=== PATIENT | male | born 1995 | race Caucasian/White ===

== ENCOUNTER 2021-01-05 18:59 | Emergency (ER) | payer BC, SELFPAY ==
--- NOTE | ~2021-01-05 | XR_ITS ---
EXAMINATION: XR ribs RT 2V EXAM DATE: 01/05/2021 19:39 INDICATION: No known recent injury provided at this time. Pain of the right lower anterior ribs. TECHNIQUE: Frontal projection of the upper right ribs, frontal projection of the lower right ribs, ob lique projection of the right ribs, without chest x-ray(s) for interpretation. There is no prior ruth dy for comparison. FINDINGS: There are no displaced acute right rib fractures identified. There are no osteoblastic or osteolytic lesions identified. There is no soft tissue abnormality seen. Right lung is clear. Heart normal in size. IMPRESSION: Unremarkable right rib exam. Reviewed, dictated and finalized at location A.
--- NOTE | ~2021-01-05 | CT_ITS ---
EXAMINATION: CT abdomen pelvis wo con EXAM DATE: 01/05/2021 21:46 INDICATION: Right flank pain. Right lower rib pain. TECHNIQUE: Spiral CT of the abdomen and pelvis was performed without contrast. Axial, coronal and sag ittal images were reviewed. The dose-length product (DLP) for this examination was 211.08 mGy-cm. T he exposure was tailored according to patient size (auto mA exposure control), and iterative reconstr uction (ASIR) was used as additional dose reduction technique. There is no prior study for compariso n. FINDINGS: There is no nephrolithiasis or hydronephrosis. The prostate is unremarkable. The bladder is undistended at time of imaging. The liver, spleen, adrenal glands and pancreas are unremarkable. Gallbladder is unremarkable. No biliary obstruction. There is no retroperitoneal or pelvic lympha denopathy. The appendix is normal. The stomach and small bowel are unremarkable. There is moderate amount of c olonic stool and gas. No free intraperitoneal gas. The heart is normal in size. There are no per icardial or pleural effusions. The lung bases are unremarkable. There are no osteoblastic or osteol ytic lesions identified. Lower aspects of the ribs are unremarkable. IMPRESSION: 1. No nephrolithiasis, hydronephrosis or acute intra-abdominal findings. 2. Moderate amount of colonic stool and gas. Reviewed, dictated and finalized at location A.
[2021-01-05 19:22] VITALS: BP 164/68; PULSE 89; RESP 20; TEMP 37.1; O2SAT 97
[2021-01-05 19:37] LABS: Basophils Absolute Auto 0.1 K/mm3 (0.0-0.1); Basophils Percent Auto 0.6 % (0.2-1.2); Eosinophils Absolute Auto 0.1 K/mm3 (0-0.3); Eosinophils Percent Auto 1.3 % (0-4.4); Hemoglobin 14.1 g/dL (14.0-18.0); Immature Granulocyte Absolute 0.04 K/mm3 (0.00-0.031); Immature Granulocyte Percent A 0.5 % (0-0.5); Lymphocytes Absolute Auto 2.47 K/mm3 (0.9-3.2); Lymphocytes Percent Auto 29.5 % (18.3-44.2); Mean Corpuscular HGB Conc 33.6 g/dl (32-36); Mean Corpuscular Hemoglobin 33.5 pg (26-34); Mean Corpuscular Volume 99.8 fl (80-100); Mean Platelet Volume 8.8 fl (7.4-10.4); Monocytes Absolute Auto 0.8 K/mm3 (0.1-0.6); Monocytes Percent Auto 9.4 % (2.6-8.5); Neutrophils Absolute Auto 4.9 K/mm3 (1.3-6.7); Neutrophils Percent Auto 58.7 % (45.5-73.1); Platelet Count Result 239 k/mm3 (150-375); Red Blood Count 4.21 M/mm3 (4.6-6.20); Red Cell Distribution Width 13.2 % (11.5-14.5); White Blood Count 8.4 K/mm3 (4.5-10.0)
[2021-01-05 19:43] LABS: Add Urine Microscopic? YES; Appearance Urine Clear (Clear); Bacteria Urine Trace /hpf; Bilirubin Urine Negative (Negative); Blood Urine Negative (Negative); Color Urine Yellow (Yellow); Glucose Urine UA Negative (Negative); Ketones Urine Negative (Negative); Leukocyte Esterase Ur Negative LEU/UL (Negative); Mucus Urine Rare /lpf; Nitrate Urine Negative (Negative); Protein Urine 1+ mg/dL (Negative); RBC Urine 0-2 /hpf (0-2); Specific Grav Ur 1.028 (1.001-1.035); WBC Urine 0-3 /hpf
[2021-01-05 19:50] LABS: Alanine Aminotransferase 21 U/L (4-50); Alkaline Phosphatase 88 U/L (38-126); Anion Gap 7 mmol/L (8-16); Aspartate Amino Transferase 32 U/L (17-59); Bilirubin,Total 0.3 mg/dL (0.2-1.3); Blood Urea Nitrogen 9 mg/dL (9-20); Calcium 8.5 mg/dL (8.4-10.2); Carbon Dioxide 28 mmol/L (22-30); Chloride 105 mmol/L (98-107); Estimated CRCL calculation 90 ml/min; Estimated Glomerular Filt Rate > 60; Glucose 124 mg/dL (75-110); Lipase 42 U/L (23-300); Potassium 3.4 mmol/L (3.4-5.0); Sodium 140 mmol/L (137-145)
--- NOTE | 2021-01-05 22:48 | ED.GENADULT ---
HPI - General Adult General Chief complaint: Abdominal Pain Stated complaint: rib pain Time Seen by Provider: 01/05/21 21:18 History of Present Illness HPI narrative: Patient is a 25-year-old gentleman who presents emerged department with chief complaint of right flank pain. The patient states that the pain is in his right flank radiates to his right side of his abdomen. The patient states that sharp states it comes and goes last for a few seconds and then comes back. Related Data Allergies Allergy/AdvReac Type Severity Reaction Status Date / Time No Known Allergies Allergy Unverified 05/08/15 11:15 Review of Systems Review of Systems: Narrative: A 10 system review of systems was completed on the patient and is negative except for what is stated in the HPI. Nursing and ancillary documentation was reviewed. [facility] Social History Social History Gender identity (if verbalized by the patient): Male Comments Patient denies past medical history Social history the patient smoke cigarettes Exam Narrative: Exam Narrative: GENERAL: Well-appearing, well-nourished, and in no acute distress. HEAD: Normocephalic, atraumatic. EYES: PERRLA and EOMI. ENT: Nares clear, no rhinorrhea or epistaxis. Mucous membranes moist. NECK: Supple. CHEST: Clear to auscultation. No respiratory distress. HEART: Regular rate and rhythm. No murmur heard. Normal peripheral pulses. ABDOMEN: Soft, nontender, nondistended, normal active bowel sounds. EXTREMITIES: Normal range of motion. No edema. SKIN: Warm, dry, no rash. NEURO: No focal deficits. Alert and oriented x3. PSYCH: Normal mood and affect. Course Course Emergency Course: CT scan shows significant constipation Vital Signs Vital signs: Vital Signs Temperature 37.1 C 01/05/21 19:22 Pulse Rate 89 01/05/21 19:22 Respiratory Rate 20 01/05/21 19:22 Blood Pressure 164/68 H 01/05/21 19:22 Pulse Oximetry 97 01/05/21 19:22 Temperature 37.1 C 01/05/21 19:22 Pulse Rate 89 01/05/21 19:22 Respiratory Rate 20 01/05/21 19:22 Blood Pressure 164/68 H 01/05/21 19:22 Pulse Oximetry 97 01/05/21 19:22 Medical Decision Making Vital Signs Vital Signs: Vital Signs Temperature 37.1 C 01/05/21 19:22 Pulse Rate 89 01/05/21 19:22 Respiratory Rate 20 01/05/21 19:22 Blood Pressure 164/68 H 01/05/21 19:22 Pulse Oximetry 97 01/05/21 19:22 Temperature 37.1 C 01/05/21 19:22 Pulse Rate 89 01/05/21 19:22 Respiratory Rate 20 01/05/21 19:22 Blood Pressure 164/68 H 01/05/21 19:22 Pulse Oximetry 97 01/05/21 19:22 Lab Data Result diagrams: 01/05/21 19:31 01/05/21 19:31 Labs: Lab Results 01/05/21 01/05/21 01/05/21 Range/Units 19:31 19:31 19:31 WBC 8.4 (4.5-10.0) K/mm3 RBC 4.21 L (4.6-6.20) M/mm3 Hgb 14.1 (14.0-18.0) g/dL Hct 42.0 (42.0-52.0) % MCV 99.8 (80-100) fl MCH 33.5 (26-34) pg MCHC 33.6 (32-36) g/dl RDW 13.2 (11.5-14.5) % Plt Count 239 (150-375) k/mm3 MPV 8.8 (7.4-10.4) fl Immature Gran % (Auto) 0.5 (0-0.5) % Neut % (Auto) 58.7 (45.5-73.1) % Lymph % (Auto) 29.5 (18.3-44.2) % [place] % (Auto) 9.4 H (2.6-8.5) % Eos % (Auto) 1.3 (0-4.4) % Baso % (Auto) 0.6 (0.2-1.2) % Lymph # (Auto) 2.47 (0.9-3.2) K/mm3 [place] # (Auto) 0.8 H (0.1-0.6) K/mm3 Eos # (Auto) 0.1 (0-0.3) K/mm3 Baso # (Auto) 0.1 (0.0-0.1) K/mm3 Abs Immat Gran (auto) 0.04 H (0.00-0.031) K/mm3 Absolute Neuts (auto) 4.9 (1.3-6.7) K/mm3 Absolute Nucleated RBC 0.0 (0.0-0.012) K/mm3 Nucleated RBC % 0.0 (0.0-0.2) % Sodium 140 (137-145) mmol/L Potassium 3.4 (3.4-5.0) mmol/L Chloride 105 (98-107) mmol/L Carbon Dioxide 28 (22-30) mmol/L Anion Gap 7 L (8-16) mmol/L BUN 9 (9-20) mg/dL Creatinine 1.00 (0.7-1.3) mg/dL Estim Creat Clear
[2021-01-05] MEDS: MAGNESIUM CITRATE 300 ML BTL PO (23:00)
[2021-01-05 23:09] VITALS: BP 153/110; PULSE 60; RESP 16; TEMP 36.6; O2SAT 100
== END 2021-01-05 23:10 | disposition home or self-care (01) ==
PROVIDERS: Emergency Medicine; Emergency Provider Emergency Medicine
DX: R10.84 Generalized abdominal pain (principal); K59.00 Constipation, unspecified; F17.210 Nicotine dependence, cigarettes, uncomplicated
CPT/HCPCS: 36415; 71100; 74176; 80053; 81001; 83690; 85025; 99284; A9270

== ENCOUNTER 2023-12-30 10:15 | Emergency (ER) | payer OTHER, SELFPAY ==
--- NOTE | 2023-12-30 10:18 | ED.WOUNDLAC ---
HPI - Wound/Laceration General Chief Complaint: Wound/Laceration Stated Complaint: Cut Finger Lt Finger Time Seen by Provider: 12/30/23 10:17 Source: patient Mode of arrival: ambulatory Limitations: no limitations History of Present Illness HPI narrative: Price is a 28-year-old male patient presenting to the clinic today with complaints of a cut to his left index finger. 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 This happened prior to arrival to the clinic today Related Data Allergies Allergy/AdvReac Type Severity Reaction Status Date / Time No Known Allergies Allergy Verified 12/30/23 10:35 Review of Systems Review of Systems: Pertinent positives per HPI. Patient denies any fever, chills, rash, headache, visual changes, dizziness, cough, shortness of breath, chest pain, palpitations, nausea, vomiting, diarrhea, constipation, abdominal pain, or any urinary issues. PMFSH Social History Social History Gender identity (if verbalized by the patient): Male Comments At the time of my signature, I reviewed and agree with the nursing past medical, surgical, social, and family history. There is no relevant family history pertinent to the patient complaint. Exam Narrative: General: Well-developed, well nourished, acting inappropriate-belligerent Head: Normocephalic, atraumatic. Cardio: Regular rate and rhythm, s1 and s2 normal, no murmur appreciated. Resp: Clear to auscultation bilaterally, no rhonchi, rales, wheezing or rubs. Integumentary: [place], warm, and dry, 3 cm laceration to the medial volar aspect of the left index finger with gaping-bleeding Course Course Emergency Course: Portions of this record may have been created with voice recognition software. Level of Care: Express Care Visit Vital Signs Vital signs: Vital signs reviewed Procedures Laceration Laceration 1: Date: 12/30/23 Site: hand (left index finger) Side (If applicable): left Size (cm): 3 Description: linear Depth: simple, single layer Local Anesthetic: lidocaine 1% Amount of anesthesia used (mL): 4 Pre-repair: wound explored, irrigated and irrigated extensively ====== Skin Level ====== Skin layer closed with: nylon Size (cm): 4-0 Number of sutures: 5 Technique: simple, interrupted ====== Subcutaneous Layer ====== ====== Muscle Layer ====== ====== Tendon Layer ====== Dressing: Verbal consent obtained for laceration repair. Risk and benefits explained and patient voiced understanding. Area was cleansed with wound wash and a 27gauge needle was then used to instill (4) ml of 1% lidocaine without epi into the wound edges. Area was prepped and draped using sterile technique. A 4-0 suture on a p needle was used to place (5) interrupted sutures bringing the wound edges together- well approximated. Patient tolerated procedure well. Sterile dressing applied. MDM - Wound/Laceration MDM Narrative Medical decision making narrative: At the time of visit patient is resting comfortably on the exam table. Patient appears to be nontoxic. Patient appears to be intoxicated-ETOH Procedure: Laceration repair was performed in the clinic today Plan: Five 4-0 interrupted sutures placed to bring the wound edges well approximate. Patient tolerated fair. Will place the patient on cephalexin as the wound caused by a dirty hook blade. Tetanus is up-to-date per patient-2 years ago. Supportive measures were discussed with the patient and they voiced understanding discharge instructions and agrees to treatment plan. Return precautions reviewed Differential Diagnosis Differential diagnosis: Likely laceration, abscess, abrasion and avulsion of skin Discharge Plan Discharge Clinical Impression: Finger laceration Qualifiers: Encounte
[2023-12-30 10:25] VITALS: BP 126/75; PULSE 79; RESP 18; TEMP 36.8; O2SAT 98
[2023-12-30] MEDS: LIDOCAINE HCL 1% LOCAL INJ 2 ML AMPUL 4 ML INFILTRATE (10:48)
== END 2023-12-30 11:09 | disposition home or self-care (01) ==
PROVIDERS: Emergency Provider Nurse Practitioner Family
DX: S61.211A Laceration without foreign body of left index finger without damage to nail, initial encounter (principal); W45.8XXA Other foreign body or object entering through skin, initial encounter
CPT/HCPCS: 12002; 99213; G0463

== ENCOUNTER 2024-01-07 09:56 | Emergency (ER) | payer OTHER, SELFPAY ==
[2024-01-07 10:05] VITALS: BP 140/87; PULSE 74; RESP 16; TEMP 36.8; O2SAT 100
--- NOTE | 2024-01-07 10:39 | ED.WOUNDLAC ---
HPI - Wound/Laceration General Chief Complaint: Skin/Abscess/Foreign Body Stated Complaint: Remove Stitches on Left Finger Time Seen by Provider: 01/07/24 10:34 Source: patient, RN notes reviewed and old records reviewed Mode of arrival: ambulatory Limitations: no limitations History of Present Illness HPI narrative: Patient presents today requesting suture removal from his left 2nd finger. Five sutures were placed on 12/30/2023. 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 Related Data Home Medications Medication Instructions Recorded Confirmed No Home Medications 01/07/24 01/07/24 Allergies Allergy/AdvReac Type Severity Reaction Status Date / Time No Known Allergies Allergy Verified 01/07/24 10:01 Review of Systems Review of Systems: CONSTITUTIONAL: Denies body aches, fever, chills, or sweats. EYES: Denies visual changes, redness, or discharge. ENT: Denies rhinorrhea, congestion, sore throat, or otalgia. CARDIOVASCULAR: Denies chest pain, palpitations, or edema. RESPIRATORY: Denies cough or dyspnea. GASTROINTESTINAL: Denies abdominal pain, nausea, vomiting, or diarrhea. GENITOURINARY: Denies dysuria or hematuria. SKIN: + sutures to left 2nd finger MUSCULOSKELETAL: Denies back pain, joint pain, or myalgia. NEUROLOGIC: Denies headache, numbness, tingling, or weakness. PSYCH: Denies depression or anxiety. PMFSH Social History Social History Gender identity (if verbalized by the patient): Male Comments At time of signature, I have reviewed and agree with nursing past medical, surgical, social and family history unless otherwise noted. Please see nursing chart for further information. There is no relevant family history pertinent to the presenting complaint Exam Narrative: GENERAL: Well-appearing, well-nourished, and in no acute distress. HEAD: Normocephalic, atraumatic. EYES: EOMI. No redness or drainage. Conjunctivae normal. ENT: Mucous membranes pink and moist. NECK: Normal AROM. CHEST: No respiratory distress. EXTREMITIES: Left 2nd finger: Healing laceration noted to the side of the finger. 4 sutures present. No erythema, swelling, or drainage noted. See procedure note SKIN: Warm, dry, no rash. Capillary refill normal. Normal skin turgor. NEURO: No focal deficits. Alert and oriented x3. Gait steady. PSYCH: Normal affect. No signs of depression or anxiety. Course Course Level of Care: Express Care Visit Vital Signs Vital signs: Vital Signs Temperature 98.2 F 01/07/24 10:05 Pulse Rate 74 01/07/24 10:05 Respiratory Rate 16 01/07/24 10:05 Blood Pressure 140/87 01/07/24 10:05 Pulse Oximetry 100 01/07/24 10:05 Oxygen Delivery Room Air 01/07/24 10:05 Temperature 98.2 F 01/07/24 10:05 Pulse Rate 74 01/07/24 10:05 Respiratory Rate 16 01/07/24 10:05 Blood Pressure 140/87 01/07/24 10:05 Pulse Oximetry 100 01/07/24 10:05 Oxygen Delivery Room Air 01/07/24 10:05 Reviewed Procedures Other Procedure Procedure 1: Other Procedure: 4 intact sutures removed. One absent. Wound healing appropriately without signs of infection. Band-Aid applied. MDM - Wound/Laceration MDM Narrative Medical decision making narrative: 4 Sutures removed. Band-Aid applied Differential Diagnosis Differential diagnosis: Likely laceration and other (Suture removal, abscess, cellulitis) Critical Care Time Critical Care Time Critical Care Time: No Discharge Plan Discharge Clinical Impression: Visit for suture removal Patient Disposition: Home, Self-Care Condition: Stable Instructions: Stitches Removal (ED) Additional Instructions: Your sutures have been removed. Keep covered until fully healed. Follow-up with your PCP with any concerns. Your blood pressure was elevated above 120/80 today at [facility]
== END 2024-01-07 10:44 | disposition home or self-care (01) ==
PROVIDERS: Emergency Provider Nurse Practitioner
DX: S61.211D Laceration without foreign body of left index finger without damage to nail, subsequent encounter (principal); X58.XXXD Exposure to other specified factors, subsequent encounter
CPT/HCPCS: 99211; G0463

== ENCOUNTER 2024-05-17 10:20 | Emergency (ER) | payer OTHER, SELFPAY ==
[2024-05-17 10:34] VITALS: BP 150/90; PULSE 77; RESP 16; TEMP 36.4; O2SAT 100
--- NOTE | 2024-05-17 10:55 | ED.CHESTPAIN ---
HPI - Chest Pain General Chief Complaint: Chest Pain Stated Complaint: Right Chest Pain Time Seen by Provider: 05/17/24 10:32 Source: patient and RN notes reviewed Mode of arrival: ambulatory Limitations: no limitations History of Present Illness HPI narrative: Patient presents today complaining of a 4 day history of right upper chest pain that he describes as sharp. Chest pain is accompanied by intermittent shortness of breath. Chest pain is worse with exertion. Currently rates his pain 7/10 and has tried no [id number] treatment prior to arrival. Denies any cardiac or respiratory history. Denies any additional symptoms to include dizziness, lightheadedness, numbness or tingling, weakness, nausea vomiting, abdominal pain. No recent illness. States he is hard of hearing Related Data Home Medications Medication Instructions Recorded Confirmed No Home Medications 01/07/24 01/07/24 Allergies Allergy/AdvReac Type Severity Reaction Status Date / Time No Known Allergies Allergy Verified 05/17/24 10:59 Review of Systems Review of Systems: CONSTITUTIONAL: Denies body aches, fever, chills, or sweats. EYES: Denies visual changes, redness, or discharge. ENT: Denies rhinorrhea, congestion, sore throat, or otalgia. CARDIOVASCULAR: Denies palpitations, or edema.+ chest pain RESPIRATORY: Denies cough.+ shortness of breath GASTROINTESTINAL: Denies abdominal pain, nausea, vomiting, or diarrhea. GENITOURINARY: Denies dysuria or hematuria. SKIN: Denies rash, itching, or wounds. MUSCULOSKELETAL: Denies back pain, joint pain, or myalgia. NEUROLOGIC: Denies headache, numbness, tingling, or weakness. PSYCH: Denies depression or anxiety. [facility] Past Medical History Medical History (Updated 05/17/24 @ 11:01 by Bridget Higginbotham, [place], [place]) Hard of hearing Social History Social History Gender identity (if verbalized by the patient): Male Comments At time of signature, I have reviewed and agree with nursing past medical, surgical, social and family history unless otherwise noted. Please see nursing chart for further information. There is no relevant family history pertinent to the presenting complaint Exam Narrative: GENERAL: Well-appearing, well-nourished, and in no acute distress. HEAD: Normocephalic, atraumatic. EYES: EOMI. No redness or drainage. Conjunctivae normal. ENT: Mucous membranes pink and moist. NECK: Normal AROM. CHEST: No respiratory distress. Clear to auscultation. HEART: Regular rate and rhythm. No murmur appreciated. Normal peripheral pulses. ABDOMEN: Soft, nontender, nondistended, normal active bowel sounds. EXTREMITIES: Normal range of motion. No edema. SKIN: Warm, dry, no rash. Capillary refill normal. Normal skin turgor. NEURO: No focal deficits. Alert and oriented x3. Gait steady. PSYCH: Normal affect. No signs of depression or anxiety. Course Course Level of Care: Express Care Visit Vital Signs Vital signs: Vital Signs Temperature 97.5 F L 05/17/24 10:34 Pulse Rate 77 05/17/24 10:34 Respiratory Rate 16 05/17/24 10:34 Blood Pressure 150/90 H 05/17/24 10:34 Pulse Oximetry 100 05/17/24 10:34 Oxygen Delivery Room Air 05/17/24 10:34 Temperature 97.5 F L 05/17/24 10:34 Pulse Rate 77 05/17/24 10:34 Respiratory Rate 16 05/17/24 10:34 Blood Pressure 150/90 H 05/17/24 10:34 Pulse Oximetry 100 05/17/24 10:34 Oxygen Delivery Room Air 05/17/24 10:34 Reviewed Transfer Transfered to: [facility] Transportation: Other (Private vehicle. Patient declines EMS transport) Transfer rationale: Chest pain, shortness of breath Accepting physician: Darius RANDOLPH - Chest Pain [facility] Narrative Medical decision making narrative: Patient on patient's symptoms and exam, along with his EKG, he will be transferred to the ER for further evaluation and treatment. Differential Diagnosis Differ
--- NOTE | 2024-05-18 11:57 | ECG_ITS ---
Test Date: 2024-05-17 10:37:44 Measurements Intervals [place] Rate: 67 P: 0 MI: 0 QRS: 73 QRSD: 102 T: 32 QT: 402 QTc: 425 Interpretive Statements BASELINE ARTIFACT, REDUCED ECG QUALITY SINUS RHYTHM LEFT VENTRICULAR HYPERTROPHY BORDERLINE ECG No previous ECG available for comparison Electronically Signed On 05-19-2024 08:45:28 CDT by Miguel Joseph M.D.
== END 2024-05-17 10:54 | disposition short-term general hospital (02) ==
PROVIDERS: Emergency Provider Nurse Practitioner; PCP Family Medicine
DX: R06.02 Shortness of breath (principal); R07.9 Chest pain, unspecified
CPT/HCPCS: 93005; 99213; G0463

== ENCOUNTER 2024-05-18 09:35 | Emergency (ER) | payer OTHER, SELFPAY ==
--- NOTE | ~2024-05-18 | CT_ITS ---
EXAMINATION: CTA chest PE protocol DATE: 05/18/2024 11:06 INDICATION: Right chest pain. TECHNIQUE: Computed tomography angiography (CTA) of the chest was performed with 100 mL Omnipaque-350 intravenous contrast timed to evaluate the pulmonary arteries. Coronal maximum intensity projection 3D-reconstructions were created by the technologist. Automated exposure control and iterative reconst ruction technique were employed. The dose-length product was 199.61 mGy-cm. COMPARISON: CT abdomen and pelvis 01/05/2021 FINDINGS: There are airspace opacities in left upper lobe. There is minimal atelectasis bilaterally. No pleural effusion. The heart size is normal. No pericardial effusion. There is no pulmonary embolus . There is mild chronic anterior wedging of multiple mid thoracic vertebral bodies. IMPRESSION: 1. No pulmonary embolus. 2. Airspace opacities in left upper lobe, consistent with pneumonia. Reviewed, dictated and finalized at location A.
--- NOTE | ~2024-05-18 | XR_ITS ---
EXAMINATION: XR chest 2V DATE: 05/18/2024 10:32 INDICATION: Right chest pain. TECHNIQUE: Frontal and lateral views of the chest were obtained. COMPARISON: CT abdomen and pelvis 01/05/2021 FINDINGS: There is no pneumonia, pleural effusion, or pneumothorax. The heart size is normal. IMPRESSION: 1. No acute cardiopulmonary disease. Reviewed, dictated and finalized at location A.
--- NOTE | 2024-05-18 09:37 | ECG_ITS ---
Test Date: 2024-05-18 09:52:02 Measurements Intervals [place] Rate: 86 P: 44 GA: 128 QRS: 78 QRSD: 99 T: 61 QT: 363 QTc: 435 Interpretive Statements SINUS RHYTHM WITH SINUS ARRHYTHMIA VOLTAGE EVIDENCE OF LVH BORDERLINE ECG Compared to ECG 05/17/2024 10:37:44 NO DIFFERENCE Electronically Signed On 05-19-2024 08:47:47 CDT by Miguel Joseph M.D.
[2024-05-18 09:46] VITALS: BP 156/100; PULSE 94; RESP 16; TEMP 36.8; O2SAT 98
[2024-05-18 09:49] VITALS: PULSE 90
[2024-05-18 09:50] VITALS: O2SAT 99
[2024-05-18 10:04] LABS: Basophils Absolute Auto 0.1 K/mm3 (0.0-0.1); Basophils Percent Auto 1.1 % (0.2-1.2); Eosinophils Absolute Auto 0.2 K/mm3 (0-0.3); Eosinophils Percent Auto 2.4 % (0-4.4); Hematocrit 45.5 % (42.0-52.0); Hemoglobin 15.9 g/dL (14.0-18.0); Immature Granulocyte Absolute 0.03 K/mm3 (0.00-0.031); Immature Granulocyte Percent A 0.4 % (0-0.5); Lymphocytes Absolute Auto 2.43 K/mm3 (0.9-3.2); Lymphocytes Percent Auto 30.6 % (18.3-44.2); Mean Corpuscular HGB Conc 34.9 g/dl (32-36); Mean Corpuscular Volume 97.4 fl (80-100); Mean Platelet Volume 8.8 fl (7.4-10.4); Monocytes Absolute Auto 0.8 K/mm3 (0.1-0.6); Monocytes Percent Auto 10.3 % (2.6-8.5); Neutrophils Absolute Auto 4.4 K/mm3 (1.3-6.7); Neutrophils Percent Auto 55.2 % (45.5-73.1); Platelet Count Result 257 k/mm3 (150-375); Red Blood Count 4.67 M/mm3 (4.6-6.20); Red Cell Distribution Width 12.9 % (11.5-14.5)
--- NOTE | 2024-05-18 10:07 | ED.CHESTPAIN ---
HPI - Chest Pain General Chief Complaint: Chest Pain Stated Complaint: chest pain X4 days Time Seen by Provider: 05/18/24 10:00 History of Present Illness HPI narrative: Patient is a 28-year-old male presenting with chest pain. States that he has had right-sided chest pain for the last 4-5 days. 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 States the pain is acutely exacerbated with lifting heavy things at work. States sometimes it takes a breath out of him. Has not taken anything for pain. Denies left-sided chest pain. No palpitations or lightheadedness. No leg swelling or history of blood clots. No recent surgeries or immobilization. No fevers or cough. No further complaints. Related Data Allergies Allergy/AdvReac Type Severity Reaction Status Date / Time No Known Allergies Allergy Verified 05/18/24 09:36 Review of Systems Review of Systems: All systems reviewed & are unremarkable except as noted in HPI and below PMFSH Past Medical History Medical History Hard of hearing Social History Social History Gender identity (if verbalized by the patient): Male Exam Narrative: GENERAL: Well-appearing, in no acute distress, pleasant and cooperative HEAD: Normocephalic, atraumatic. EYES: PERRLA and EOMI. ENT: Mucous membranes moist. NECK: Supple. CHEST: Clear to auscultation. No respiratory distress. + right-sided chest wall tenderness HEART: Regular rate and rhythm ABDOMEN: Soft, nontender, nondistended EXTREMITIES: Normal range of motion. No edema. SKIN: Warm, dry, no rash. NEURO: No focal deficits. Alert and oriented x3. PSYCH: Normal mood and affect. Course Vital Signs Vital signs: Vital Signs Temperature 98.3 F 05/18/24 09:46 Pulse Rate 94 05/18/24 09:46 Respiratory Rate 16 05/18/24 09:46 Blood Pressure 156/100 H 05/18/24 09:46 Pulse Oximetry 98 05/18/24 09:46 Temperature 98.3 F 05/18/24 09:46 Pulse Rate 71 05/18/24 10:21 Respiratory Rate 18 05/18/24 10:21 Blood Pressure 140/84 05/18/24 10:21 Pulse Oximetry 96 05/18/24 10:21 Oxygen Delivery Room Air 05/18/24 09:50 MDM - Chest Pain MDM Narrative Medical decision making narrative: 28-year-old male presenting with right-sided chest pain for the last several days it is exacerbated with movements. Patient slightly hypertensive, his vitals are within normal limits. Patient declines pain medications at this time. EKG per my interpretation shows normal sinus rhythm, normal intervals, no ST elevations or depressions. Blood work with elevated dimer. Troponin undetectable. CTA chest shows no pulmonary embolism. There is evidence of left-sided pneumonia. Patient has had a cough lately. Will start him on some doxycycline. I suspect his right-sided pain is muscular in nature. Tylenol and ibuprofen for this. Recommend PCP follow-up. Appropriate return precautions given. Discharged in stable condition. Differential Diagnosis Differential diagnosis: Likely fracture of rib, atypical chest pain, costochondritis and chest pain Medical Records Data Attestation: I reviewed the patient's medical records. Lab Data Attestation: I reviewed the patient's lab results. 05/18/24 09:59 05/18/24 09:59 Labs: Lab Results 05/18/24 Range/Units 09:59 WBC 8.0 (4.5-10.0) K/mm3 RBC 4.67 (4.6-6.20) M/mm3 Hgb 15.9 (14.0-18.0) g/dL Hct 45.5 (42.0-52.0) % MCV 97.4 (80-100) fl MCH 34.0 (26-34) pg MCHC 34.9 (32-36) g/dl RDW 12.9 (11.5-14.5) % Plt Count 257 (150-375) k/mm3 MPV 8.8 (7.4-10.4) fl Immature Gran % (Auto) 0.4 (0-0.5) % Neut % (Auto) 55.2 (45.5-73.1) % Lymph % (Auto) 30.6 (18.3-44.2) % [place] % (Auto) 10.3 H (2.6-8.5) % Eos % (Auto) 2.4 (0-4.4) % Baso % (Auto) 1.1 (0.2-1.2) % Lymph # (Auto) 2.43 (0.9-3.2) K/mm3 M
[2024-05-18 10:19] LABS: Alanine Aminotransferase 29 U/L (6-50); Albumin Level 4.7 g/dL (3.5-5.1); Alkaline Phosphatase 98 U/L (38-126); Anion Gap 12 mmol/L (4-12); Aspartate Amino Transferase 36 U/L (17-59); Bilirubin,Total 0.7 mg/dL (0.2-1.3); Blood Urea Nitrogen 14 mg/dL (9-20); Calcium 8.7 mg/dL (8.4-10.2); Carbon Dioxide 23 mmol/L (22-30); Chloride 101 mmol/L (98-107); Estimated CRCL calculation 95 ml/min; Estimated Glomerular Filt Rate > 60; Glucose 113 mg/dL (65-110); INR 0.9; Lipase 63 U/L (23-300); Potassium 3.4 mmol/L (3.4-5.0); Prothrombin Time 12.6 Seconds (11.1-14.7); Sodium 136 mmol/L (137-145)
[2024-05-18 10:20] LABS: Partial Thromboplastin Time 26.8 Seconds (22.3-36.8)
[2024-05-18 10:21] VITALS: BP 140/84; PULSE 71; RESP 18; O2SAT 96
[2024-05-18 10:30] LABS: Troponin I < 0.012 ng/mL (0.000-0.034)
[2024-05-18 10:41] LABS: D Dimer 0.54 ug/mL (<0.48)
[2024-05-18 12:07] VITALS: BP 136/76; PULSE 67; RESP 16; TEMP 36.6; O2SAT 100
== END 2024-05-18 12:13 | disposition home or self-care (01) ==
PROVIDERS: Emergency Medicine; Emergency Provider Emergency Medicine
DX: J18.9 Pneumonia, unspecified organism (principal); R07.89 Other chest pain; R94.31 Abnormal electrocardiogram [ECG] [EKG]
CPT/HCPCS: 36415; 71046; 71275; 80053; 83690; 84484; 85025; 85380; 85610; 85730; 93005; 99284; Q9967

== ENCOUNTER 2024-11-03 17:23 | Emergency (ER) | payer OTHER, SELFPAY ==
--- NOTE | ~2024-11-03 | XR_ITS ---
EXAM: XR hand RT min 3V DATE: 11/03/2024 18:20 HISTORY: snow boarding accident . COMPARISON: None available. FINDINGS: Normal mineralization. Old boxer's fracture fractures of the fourth and fifth metacarpals, healed in deformity. No acute fracture or dislocation. No lytic or blastic lesion. Joint spaces are maintained. No erosion or periosteal change. Soft tissues within normal limits. IMPRESSION: No acute osseous finding in the right hand. Reviewed, dictated and finalized at location K. E WORKER
--- NOTE | ~2024-11-03 | XR_ITS ---
EXAM: XR toe 1st RT min 2V DATE: 11/03/2024 18:20 HISTORY: snow boarding accident . COMPARISON: None available. FINDINGS: Normal mineralization. Nondisplaced oblique fracture of the right first distal phalanx, wi th intra-articular extension. No lytic or blastic lesion. Joint spaces are maintained. No erosion or periosteal change. Great toe soft tissue swelling. IMPRESSION: Nondisplaced intra-articular distal right first phalanx fracture. Reviewed, dictated and finalized at location K. PERINATAL
[2024-11-03 17:25] VITALS: BP 171/109; PULSE 89; RESP 16; TEMP 36.5; O2SAT 100
--- NOTE | 2024-11-03 17:55 | ED_ITS ---
HPI - Extremity Injury (Upper) General Chief Complaint: Extremity Injury, Upper Stated Complaint: R hand pain Time Seen by Provider: 11/03/24 17:38 History of Present Illness HPI narrative: 28-year-old male presents to the emergency department for right hand pain and right great toe pain. Patient states he was sledding yesterday, sledded off a ramp and hit a tree. He did not hit his head or lose consciousness. He denies other injuries acquired. Reporting pain and swelling to the dorsum of the right hand in the right great toe. Physically for pain without improvement. Related Data Allergies Allergy/AdvReac Type Severity Reaction Status Date / Time No Known Allergies Allergy Verified 05/18/24 09:36 Review of Systems Review of Systems: All systems reviewed & are unremarkable except as noted in HPI and below PMFSH Past Medical History Medical History Hard of hearing Social History Social History Gender identity (if verbalized by the patient): Male Exam Narrative: GENERAL: Well-appearing, well-nourished, and in no acute distress. HEAD: Normocephalic, atraumatic. EYES: EOMI. ENT: Nares clear, no rhinorrhea or epistaxis. Mucous membranes moist. NECK: No midline cervical spinous tenderness, crepitus, step-offs or deformities BACK: No midline thoracolumbar spinous tenderness, crepitus, step-offs or deformities CHEST: Clear to auscultation. No respiratory distress. HEART: Regular rate and rhythm. No murmur heard. Normal peripheral pulses. ABDOMEN: Soft, nontender, nondistended, normal active bowel sounds. EXTREMITIES: RUE: Diffuse edema, ecchymosis and tenderness to the 3rd through 5th metacarpals and to the proximal 4th phalanx with no obvious deformity, patient has full flexion of all digits, limited extension of the 4th digit, ot herwise full extension of remainder of digits, cap refill less than 2 sensation intact throughout, radial pulse 2 +. No tenderness remainder of hand or upper extremity, distal box tenderness or wrist tenderness. RLE: Ecchymosis to the right great toe with diffuse tenderness, no subungual hematoma, no obvious deformity, no tenderness remainder of foot or ankle, patient able to wiggle toes, cap refill less than 2, DP pulse 2 +, sensation intact. No tenderness remainder of upper or lower extremities NEURO: No focal deficits. Alert and oriented x3 Course Vital Signs Vital signs: Vital Signs Temperature 97.7 F 11/03/24 17:25 Pulse Rate 89 11/03/24 17:25 Respiratory Rate 16 11/03/24 17:25 Blood Pressure 171/109 H 11/03/24 17:25 Pulse Oximetry 100 11/03/24 17:25 Oxygen Delivery Room Air 11/03/24 17:25 Temperature 97.7 F 11/03/24 17:25 Pulse Rate 89 11/03/24 17:25 Respiratory Rate 16 11/03/24 17:25 Blood Pressure 171/109 H 11/03/24 17:25 Pulse Oximetry 100 11/03/24 17:25 Oxygen Delivery Room Air 11/03/24 17:25 MDM - Extremity Injury (Upper) MDM Narrative Medical decision making narrative: 28-year-old male presents to the ED for right hand pain and right great toe pain after a sledding accident that occurred yesterday. See HPI for further history. Triage vitals with elevated blood pressure, otherwise unremarkable. Exam significant for the above. X-ray the hand shows no acute osseous findings. X- ray of the right great toe shows nondisplaced intra-articular distal right 1st phalanx fracture. Patient updated on workup. First and 2nd rate toes were anil-taped and patient was provided a postop shoe. His right 4th digit was placed in a finger splint given limited extension of the finger, and Ashish wrap was applied to his hand. Patient was provided follow-up with Podiatry and hand specialists. Ibuprofen/pharmacy. Return precautions provided. He is agreeable with the plan verbalized understanding. Discharged in stable condition. Discharge Plan Discharge Clinical Impression: Strain of finger Sprain of hand, right Qualifiers: Encounter type: initial encounter Qualified Code(s): S63.91XA - Sprain of unspecified part of right wrist and hand, initial encounter Fracture of toe Qualifiers: Encounter type: initial encounter Toe: great toe Fracture type: closed Phalanx: distal Fracture alignment: nondisplaced Laterality: right Qualified Code(s): S92.424A - Nondisplaced fracture of distal phalanx of right great toe, initial encounter for closed fracture Patient Disposition: Home, Self-Care Condition: Stable Instructions: Antibiotic Form, Toe Fracture (ED), Finger Sprain (ED), Hand Sprain (ED) Additional Instructions: Rest, ice, elevate and compression or injuries. Follow-up with the hand surgeon and with the property claims adjuster. Take ibuprofen as needed for pain and swelling. Return to the emergency department if you develop white or numbness at the end of your toe over hand/fingers, significantly worsening pain, or other concerning symptoms Patient Language: Cambodian Prescriptions: New ibuprofen 800 mg tablet 800 mg PO TID PRN (Reason: pain) Qty: 20 0RF No Action doxycycline hyclate 100 mg tablet 100 mg PO Q12H 5 Days Qty: 10 0RF Follow-up/Referrals: Nola Ordoñez MD [Physician] - Jethro Chatterjee Jr., DPM [Physician] - PHYSICIAN,RETAIL LEADER [Primary Care Provider] -
== END 2024-11-03 19:10 | disposition home or self-care (01) ==
PROVIDERS: Emergency Provider Physician Assistant
DX: S63.91XA Sprain of unspecified part of right wrist and hand, initial encounter (principal); S92.424A Nondisplaced fracture of distal phalanx of right great toe, initial encounter for closed fracture; W22.8XXA Striking against or struck by other objects, initial encounter; Y93.23 Activity, snow (alpine) (downhill) skiing, snowboarding, sledding, tobogganing and snow tubing
CPT/HCPCS: 29130; 73130; 73660; 99284

== ENCOUNTER 2025-07-11 05:55 | Emergency (ER) | payer SELFPAY ==
--- NOTE | ~2025-07-11 | XR_ITS ---
Examination: XR hand RT min 3V Clinical History: punched glass table Comparison: Right hand x-rays 11/03/2024 Technique: 4 views right hand Findings/impression: 1. No radiopaque foreign body within soft tissues. 2. Tiny subtle hyperdense focus along fingernails fourth and fifth fingers. 3. No acute bony abnormality. 4. Chronic fracture/deformity fourth and fifth metacarpals. 5. Soft tissue injury proximal fifth finger. Reviewed, dictated and finalized at location R.
[2025-07-11 06:45] VITALS: BP 123/80; PULSE 65; RESP 14; O2SAT 100
--- NOTE | 2025-07-11 07:27 | ED_ITS ---
HPI - General Adult General Chief complaint: Wound/Laceration Stated complaint: put hand through glass table Time Seen by Provider: 07/11/25 06:56 History of Present Illness HPI narrative: 29-year-old male presents to the emergency department for evaluation for injury to his right 5th finger. Patient states he tripped and put his hand through a glass table. Patient does have a laceration to the right 5th finger. Patient denies any other pain or injury. Patient states his tetanus was up-to-date. Related Data Allergies Allergy/AdvReac Type Severity Reaction Status Date / Time No Known Allergies Allergy Verified 05/18/24 09:36 Review of Systems Review of Systems: All systems reviewed & are unremarkable except as noted in HPI and below PMFSH Past Medical History Medical History Hard of hearing Social History Social History Gender identity (if verbalized by the patient): Male Exam Narrative: APPEARANCE: Well appearing, no pain, no distress, well-nourished. HEAD: normocephalic, atraumatic. EYES: PERRLA/EOMI, conjunctivae clear. NOSE: Normal no drainage EARS:TMS clear with good light reflex. THROAT: Pharynx clear, no exudate. NECK: Supple. No adenopathy, no masses. RESPIRATORY: Airway patent, respirations nonlabored. Clear to auscultation bilaterally, no rales, rhonchi, wheezing. CARDIOVASCULAR: Regular rate and rhythm without murmurs rubs or gallops. ABDOMINAL: Soft, nontender, nondistended, normal bowel sounds MUSCULOSKELETAL: Moves all extremities. Strength/ROM intact, No edema, No calf tenderness. NEURO: Alert. Cranial nerves II through XII intact. Good gait. Good coordination SKIN: Laceration to right 5th finger, limited range of motion Course Vital Signs Vital signs: Vital Signs Pulse Rate 65 07/11/25 06:45 Respiratory Rate 14 07/11/25 06:45 Blood Pressure 123/80 07/11/25 06:45 Pulse Oximetry 100 07/11/25 06:45 Oxygen Delivery Room Air 07/11/25 06:45 Pulse Rate 65 07/11/25 06:45 Respiratory Rate 14 07/11/25 06:45 Blood Pressure 123/80 07/11/25 06:45 Pulse Oximetry 100 07/11/25 06:45 Oxygen Delivery Room Air 07/11/25 06:45 Procedures Laceration Laceration 1: Site: upper extremity Side (If applicable): right Size (cm): 4 Description: flap and irregular Depth: simple, single layer Local Anesthetic: lidocaine 1% Amount of anesthesia used (mL): 3 ====== Skin Level ====== Skin layer closed with: prolene Size (cm): 4-0 Number of sutures: 6 Technique: simple, interrupted ====== Subcutaneous Layer ====== ====== Muscle Layer ====== ====== Tendon Layer ====== Medical Decision Making MDM Narrative Medical decision making narrative: 21-year-old male presents emergency department for evaluation for laceration to his right middle finger. X-ray shows no foreign body. Patient does have a tendon laceration the digiti minimi across the dorsal surface of the right 5th finger. Laceration was repaired and patient was placed in a splint. Patient was also treated with antibiotics. Patient was strongly encouraged close follow-up with Plastic/Hand surgery. Differential Diagnosis Differential Diagnosis: Finger laceration, foreign body, tendon laceration Vital Signs Vital Signs: Vital Signs Pulse Rate 65 07/11/25 06:45 Respiratory Rate 14 07/11/25 06:45 Blood Pressure 123/80 07/11/25 06:45 Pulse Oximetry 100 07/11/25 06:45 Oxygen Delivery Room Air 07/11/25 06:45 Pulse Rate 65 07/11/25 06:45 Respiratory Rate 14 07/11/25 06:45 Blood Pressure 123/80 07/11/25 06:45 Pulse Oximetry 100 07/11/25 06:45 Oxygen Delivery Room Air 07/11/25 06:45 Discharge Plan Discharge Clinical Impression: Rupture of tendon, extensor digiti minimi, Finger laceration Patient Disposition: Home Condition: Stable Instructions: Antibiotic Form, Care For Your Stitches (ED) Additional Instructions: Wound care as directed. Antibiotics as directed until completed. You will need to have close follow-up with Hand surgery. If you do not have follow-up with hand surgery you will have permanent disability 5th finger. Sutures need to be removed in 7-10 days. Patient Language: Korean Prescriptions: New cephalexin 500 mg capsule 500 mg PO BID 7 Days Qty: 14 0RF No Action doxycycline hyclate 100 mg tablet 100 mg PO Q12H 5 Days Qty: 10 0RF ibuprofen 800 mg tablet 800 mg PO TID PRN (Reason: pain) Qty: 20 0RF Follow-up/Referrals: Nola Ordoñez MD [Physician, Plastic Surgery]
== END 2025-07-11 09:36 | disposition home or self-care (01) ==
PROVIDERS: Emergency Provider Emergency Medicine
DX: S66.327A Laceration of extensor muscle, fascia and tendon of left little finger at wrist and hand level, initial encounter (principal); W01.110A Fall on same level from slipping, tripping and stumbling with subsequent striking against sharp glass, initial encounter
CPT/HCPCS: 12002; 73130; 99283

== ENCOUNTER 2025-07-19 13:15 | Emergency (ER) | payer SELFPAY ==
--- NOTE | 2025-07-19 13:22 | ED_ITS ---
HPI - Skin/Abscess/Foreign Bdy General Chief complaint: Skin/Abscess/Foreign Body Stated complaint: stitch removal, right hand Time Seen by Provider: 07/19/25 13:22 Source: patient Mode of arrival: ambulatory Limitations: no limitations History of Present Illness HPI narrative: Patient is a 29-year-old male who presents for suture removal of right hand 5th digit. Patient had 6 sutures placed 07/11 in the emergency department. Related Data Home Medications ?Medication ?Instructions ?Recorded ?Confirmed ?Last Taken ?Type No Home Medications 07/19/25 07/19/25 U nknown History Allergies Allergy/AdvReac Type Severity Reaction Status Date / Time No Known Allergies Allergy Verified 07/19/25 13:22 Review of Systems 2 Review of Systems: All systems reviewed & are unremarkable except as noted in HPI and below Constitutional: Constitutional: Denies body ache(s), Denies chills, Denies fatigue, Denies fever(s), Denies headache(s), Denies malaise and Denies weakness Eyes: Eyes: Denies blurry vision, Denies irritation and Denies loss of vision ENT: Denies otalgia, Denies headache(s), Denies nasal discharge, Denies sinus pain and Denies sore throat Cardiovascular: Cardiovascular: Denies chest pain, Denies irregular heart rhythm and Denies dyspnea Respiratory: Respiratory: Denies dyspnea Gastrointestinal: Gastrointestinal: Denies abdominal pain, Denies melena, Denies hematochezia, Denies diarrhea, Denies nausea and Denies vomiting Musculoskeletal: Musculoskeletal: Denies back pain, Denies myalgias and Denies arthralgias Integumentary/Breasts: Skin/Breast: Denies pruritus, Denies rash and Reports wounds Neurologic: Denies headache(s), Denies loss of vision and Denies weakness Psychiatric: Psychiatric: Reports no additional psychiatric complaints Endocrine: Endocrine: Denies fatigue PMFSH Past Medical History Medical History Hard of hearing Social History Social History Gender identity (if verbalized by the patient): Male Comments At time of signature, agree with nursing past medical, surgical, social and family history. There is no relevant family history pertinent to the presenting complaint. Exam 2 Const: General: cooperative, healthy appearing, comfortable, no acute distress and well nourished Nutritional Appearance: well nourished O rientation/consciousness: patient oriented x3 Limitations: no limitations HENMT: Head: normal to inspection, normocephalic and atraumatic Ears: h earing grossly normal bilaterally and external ears normal Face/Nose/Sinus: N ormal external nose present, normal facial exam and face symmetric Face and sinus: normal facial exam and face symmetric Mouth: Yes lip normal Eyes: General: appearance normal, both eyes and all related structures A lignment and Position: alignment normal and position normal Periorbital: p eriorbital findings normal Eyelids: eyelids normal Pupils: Equal, round and reactive pupils present EOM: EOMs intact bilaterally Neck: Neck: normal visual inspection, full ROM and supple Chest: Chest palpation & inspection: normal inspection of the chest Resp: Effort & Inspection: normal respiratory effort and able to speak in complete sentences Auscultation: clear to auscultation bilaterally Cardio: Rate: regular rate Rhythm: regular rhythm Heart sounds: S1 normal heart sound present and S2 normal heart sound present GI: Inspection: normal to inspection Skin: General skin exam: normal color and no rashes or lesions noted Neuro: General: patient oriented x3 and moves all extremities Cranial nerves: Yes Equal, round and reactive pupils present Speech: normal speech Gait exam (Neuro): Normal gait present Extrem: General: normal to inspection, full ROM and no edema Hand/finger images: 1. 6 sutures present, wound well approximated and healing. No drainage, erythema Psych: Appearance: grossly normal and well kempt Mental Status: mental status grossly normal Speech and movement: Normal speech and movement present Affect: normal affect Attitude: cooperative Thought process: Normal thought process present Course Course Emergency Course: Patient is aware of diagnosis, understands and agrees to treatment plan. Anticipatory guidance given. Patient agrees to follow-up as directed and is aware of reasons to seek care at the emergency department. Portions of this record may have been created with voice recognition software Level of Care: Express Care Visit Vital Signs Vital signs: Reviewed MDM - Skin/Abscess/Foreign Bdy MDM Narrative Medical decision making narrative: Six sutures removed Pt well hydrated appearing, in no respiratory distress, hemodynamically stable. Recommend supportive care. The patient is stable at time of discharge the clinical impression was discussed and the patient was given the opportunity to ask questions, which were addressed as completely as possible given the information available at present. Anticipatory guidance and return to care precautions were discussed and the importance of primary care follow-up was stressed and encouraged. The patient voiced understanding of the plan, indications to return, and the need for follow-up. Exam findings show no acute concerns or changes Patient is appropriate for outpatient treatment and follow-up. Differential Diagnosis Differential diagnosis: Likely other (Suture removal, laceration) Medical Records Attestation: I reviewed the patient's medical records. Discharge Plan Discharge Clinical Impression: Encounter for removal of sutures Patient Disposition: Home Condition: Stable Instructions: Stitches Removal (ED) Additional Instructions: AFTER the stitches are removed: Clean your wound as directed. Carefully wash your wound with soap and water. Pat the area dry with a clean towel. Protect your wound. Your wound can swell, bleed, or split open if it is stretched or bumped. You may need to wear a bandage that supports your wound until it is completely healed. How to minimize a scar: After sutures are removed, keep your scar out of the sun. Use sunblock if your wound is exposed to the sun. You may use OTC silicone pad and/or scar massage with ointment (for 10-15 min a day) after one month. Talk to your doctor if you think you are developing a keloid. Patient Language: Belarusian Prescriptions: No Action No Home Medications Follow-up/Referrals: Dez Joseph MD [Physician, Family Practice] - 3 Days Referral Note: Establish care Time of Disposition: 13:48
[2025-07-19 13:34] VITALS: BP 139/95; PULSE 88; RESP 18; TEMP 36.8; O2SAT 99
== END 2025-07-19 13:50 | disposition home or self-care (01) ==
PROVIDERS: Emergency Provider Nurse Practitioner Family
DX: S61.216D Laceration without foreign body of right little finger without damage to nail, subsequent encounter (principal); X58.XXXD Exposure to other specified factors, subsequent encounter
CPT/HCPCS: 99211; G0463